=== PATIENT | male | born 1985 | race Caucasian/White ===

== ENCOUNTER 2022-05-28 04:40 | Emergency (ER) | payer SELFPAY ==
[~2022-05-28] VITALS: Ht 180.3 cm; Wt 128.5 kg
[2022-05-28 04:41] VITALS: BP 127/86
[2022-05-28] MEDS ORDERED: NAPR-837 PO (07:54)
== END 2022-05-28 08:09 | disposition home or self-care (01) ==
LOC: M ED 04:40
DX: S86.112A Strain of other muscle(s) and tendon(s) of posterior muscle group at lower leg level, left leg, initial encounter (principal); F17.200 Nicotine dependence, unspecified, uncomplicated; Z79.1 Long term (current) use of non-steroidal anti-inflammatories (NSAID)

== ENCOUNTER → 2022-09-28 | Outpatient (REF) ==
[~2022-09-28] MED LIST: NAPR-837 PO
== END ==
LOC: M LAB 14:56
PROVIDERS: ATTEND Nurse Practitioner Adult Health
DX: Z02.89 Encounter for other administrative examinations (principal)

== ENCOUNTER 2022-12-15 05:58 | Emergency (ER) | payer SELFPAY ==
[~2022-12-15] VITALS: Ht 180.3 cm; Wt 122.9 kg
[2022-12-15] MEDS ORDERED: NS 1,000 ML IV ONE (06:45)
[2022-12-15 07:06] LABS: BASO % 0.2 % (0.0-1.0); EOS # 0.1 10^3/uL (0.0-0.5); EOS % 1.4 % (0.0-3.0); HEMATOCRIT 46.5 % (42.0-52.0); HEMOGLOBIN 15.6 g/dl (13.5-17.5); LYMPH # 1.6 10^3/uL (1.5-5.0); LYMPH % 27.4 % (24.0-44.0); MEAN CORPUSCULAR HEMOGLOBIN 28.4 pg (27.0-33.0); MEAN CORPUSCULAR HGB CONC 33.5 g/dl (32.0-36.5); MEAN CORPUSCULAR VOLUME 84.7 fl (80.0-96.0); MONO # 0.5 10^3/uL (0.0-0.8); MONO % 7.8 % (2.0-8.0); NEUTROPHILS # 3.6 10^3/uL (1.5-8.5); PLATELET COUNT, AUTOMATED 179 10^3/uL (150-450); RED BLOOD COUNT 5.49 10^6/uL (4.30-6.10); WHITE BLOOD COUNT 5.8 10^3/uL (4.0-10.0)
[2022-12-15 07:40] LABS: RSV AMPLIFICATION NEGATIVE (NEGATIVE)
[2022-12-15 08:30] VITALS: BP 134/79; O2SAT 99
[2022-12-15 08:55] VITALS: TEMP 98.2
== END 2022-12-15 08:57 | disposition home or self-care (01) ==
LOC: M ED 05:58
DX: R55 Syncope and collapse (principal); F17.200 Nicotine dependence, unspecified, uncomplicated; F12.10 Cannabis abuse, uncomplicated

== ENCOUNTER 2022-12-16 06:05 | Emergency (ER) | payer SELFPAY ==
[~2022-12-16] VITALS: Ht 180.3 cm; Wt 122.9 kg
[2022-12-16] MEDS ORDERED: NS 1,000 ML IV ONE (09:15)
[2022-12-16] MEDS ORDERED: PSEUDOEPHEDRINE 30 MG TAB PO STA (09:15)
[2022-12-16] MEDS ORDERED: BENZONATATE 100MG CAPSULE PO ONE (09:15)
[2022-12-16 09:42] LABS: BASO % 0.5 % (0.0-1.0); EOS # 0.1 10^3/uL (0.0-0.5); EOS % 0.9 % (0.0-3.0); HEMATOCRIT 48.7 % (42.0-52.0); HEMOGLOBIN 16.4 g/dl (13.5-17.5); LYMPH # 1.9 10^3/uL (1.5-5.0); LYMPH % 28.7 % (24.0-44.0); MEAN CORPUSCULAR HEMOGLOBIN 28.9 pg (27.0-33.0); MEAN CORPUSCULAR HGB CONC 33.7 g/dl (32.0-36.5); MEAN CORPUSCULAR VOLUME 85.7 fl (80.0-96.0); MONO # 0.3 10^3/uL (0.0-0.8); MONO % 5.3 % (2.0-8.0); NEUTROPHILS # 4.2 10^3/uL (1.5-8.5); NEUTROPHILS % 64.3 % (36.0-66.0); PLATELET COUNT, AUTOMATED 189 10^3/uL (150-450); RED BLOOD COUNT 5.68 10^6/uL (4.30-6.10); WHITE BLOOD COUNT 6.5 10^3/uL (4.0-10.0)
[2022-12-16 10:26] LABS: BLOOD UREA NITROGEN 11 MG/DL (9-23); CALCIUM LEVEL 8.9 MG/DL (8.5-10.1); CARBON DIOXIDE LEVEL 26 MMOL/L (20-31); CHLORIDE LEVEL 104 MMOL/L (98-107); CK-MB VALUE MASS 1.2 NG/ML (<3.6); CPK CREATINE PHOSPHOKINASE 194 U/L (46-171); CREATININE FOR GFR 0.77 MG/DL (0.70-1.30); GLOMERULAR FILTRATION RATE > 60.0 (>60); GLUCOSE, FASTING 85 MG/DL (60-100); MB/CK RELATIVE INDEX 0.61 (< OR =4); POTASSIUM SERUM 5.2 MMOL/L (3.5-5.1); SODIUM LEVEL 137 MMOL/L (136-145)
[2022-12-16] MEDS ORDERED: ISOVUE-370 76% 100ML VIAL As Ordered ONE (10:32)
[2022-12-16 11:23] VITALS: BP 119/80; TEMP 97; O2SAT 100
== END 2022-12-16 12:03 | disposition home or self-care (01) ==
LOC: M ED 06:05
DX: R06.02 Shortness of breath (principal); R42 Dizziness and giddiness; I49.40 Unspecified premature depolarization
CPT/HCPCS: 70450; 71275; 80048; 82550; 82553; 84484; 85025; 93005; 96360; 99284; Q9967